=== PATIENT | female | born 1990 | race Asian ===

== ENCOUNTER 2017-12-26 13:49 | Emergency (ER) | payer OTHER ==
[~2017-12-26] VITALS: Ht 149.9 cm; Wt 65.3 kg
[2017-12-26 14:22] VITALS: BP 108/63
[2017-12-26 15:46] LABS: BASOPHILS # (AUTO) 0.4 K/uL (0.00-0.22); EOSINOPHILS # (AUTO) 0.1 K/uL (0-0.4); HEMATOCRIT 39.2 % (36-48); MEAN CORPUSCULAR HEMOGLOBIN 30 pg (27-31); MEAN CORPUSCULAR HGB CONC 33 g/dL (33-37); MEAN CORPUSCULAR VOLUME 90 fL (80-94); MONOCYTES # (AUTO) 0.5 K/uL (0.8-1.0); NEUTROPHILS # (AUTO) 6.8 K/uL (1.8-7.7); PLATELET COUNT (AUTO) 390 K/uL (140-450); RED BLOOD CELL COUNT(AUTO) 4.38 MIL/uL (4.20-5.40); RED CELL DISTRIBUTION WIDTH 12.1 % (11.6-13.7); WHITE BLOOD COUNT (AUTO) 9.8 K/uL (4.8-10.8)
[2017-12-26 15:57] LABS: BILIRUBIN,URINE NEGATIVE (NEGATIVE); BLOOD, URINE TRACE-I (NEGATIVE); LEUKOCYTE ESTERASE ,URINE NEGATIVE (NEGATIVE); NITRITE, URINE NEGATIVE (NEGATIVE); PH,URINE 6.5 (5.0-9.0); UGLUCOSE NEGATIVE (NEGATIVE)
[2017-12-26 16:02] LABS: APPEARANCE,URINE CLEAR (CLEAR); COLOR,URINE YELLOW (YELLOW)
[2017-12-26 16:19] LABS: RBC,URINE 0-5 (RARE) /HPF (0-5); WBC,URINE 0-5 (RARE) /HPF (0-5)
[2017-12-26 16:19] LABS: ANION GAP 17.2 (8-16); CARBON DIOXIDE 23.7 mmol/L (21-32); CREATININE 0.5 mg/dL (0.6-1.3); POTASSIUM 3.9 mmol/L (3.5-5.1)
[2017-12-26 16:25] LABS: ALBUMIN 4.2 g/dL (3.4-5.0); TOTAL BILIRUBIN 0.3 mg/dL (0.0-1.0)
[2017-12-26] MEDS ORDERED: MULTIVITAMIN-12 10 ML, THIAMINE 100 MG, MAGNESIUM SULFATE 50% 2,000 MG, FOLIC ACID 5 MG... IV ONE ×5 (17:20)
[2017-12-26] MEDS ORDERED: ONDANSETRON 4 MG ODT PO ONE (17:20)
[2017-12-26] MEDS ORDERED: ONDANSETRON 4 MG/2 ML VIAL ONE (18:05)
[2017-12-26] MEDS ORDERED: PROMETHAZINE 25 MG/ML VIAL IM ONE (19:40)
[2017-12-26 21:12] VITALS: BP 106/62
== END 2017-12-26 21:11 | disposition home or self-care (01) ==
LOC: MED 13:49
DX: O21.0 Mild hyperemesis gravidarum (principal); Z3A.01 Less than 8 weeks gestation of pregnancy
CPT/HCPCS: 36415; 76801; 80053; 81001; 81025; 84702; 85025; 86900; 86901; 96365; 96366; 96372; 99285; A9153; J2405; J2550; J3411; J3475; J3490; J7030; Q0092; S0119